=== PATIENT | male | born 1970 | race Caucasian/White ===

== ENCOUNTER → 2016-07-29 | Outpatient (REF) | payer BC, OTHER ==
[~2016-07-29] MED LIST: ALLE10TA12 PO; ATOR40TA PO; BENT10CA PO; CYCL5TA GT; DULO30CA PO; LISIPOW PO; NAPR375T4 PO; OMEP20CA3 PO; STRATTERA; TRAM50TA2 PO; TRAZ50TA4 PO; [UNRECOGNIZED DRUG - CODE] PO
[2016-07-29 16:31] LABS: FREE T4 0.93 NG/DL (0.76-1.46)
[2016-07-29 16:32] LABS: CORTISOL AM 4.8 UG/DL (4.3-22.4)
[2016-08-04 08:06] LABS: PROLACTIN MONOMERIC 6.6 ng/mL (.); PROLACTIN TOTAL 7.2 ng/mL (.)
== END ==
LOC: M LABDRAW1 15:28
PROVIDERS: ATTEND Internal Medicine Endocrinology, Diabetes & Metabolism
DX: E23.7 Disorder of pituitary gland, unspecified (principal)

== ENCOUNTER → 2016-08-19 | Outpatient (CLI) | payer BC, OTHER ==
[2016-08-19 09:08] LABS: ALBUMIN 3.9 GM/DL (3.2-5.2); ALKALINE PHOSPHATASE 63 U/L (45-117); ALT/SGPT 33 U/L (12-78); ANION GAP 9 MEQ/L (8-16); AST/SGOT 17 U/L (15-37); BILIRUBIN,TOTAL 0.8 MG/DL (0.2-1.0); BLOOD UREA NITROGEN 15 MG/DL (7-18); CALCIUM LEVEL 8.8 MG/DL (8.5-10.1); CARBON DIOXIDE LEVEL 29 MEQ/L (21-32); CHLORIDE LEVEL 103 MEQ/L (98-107); CREATININE FOR GFR 0.81 MG/DL (0.70-1.30); GLOMERULAR FILTRATION RATE > 60.0 (>60); GLUCOSE, FASTING 173 MG/DL (70-105); SODIUM LEVEL 141 MEQ/L (136-145); TOTAL PROTEIN 6.9 GM/DL (6.4-8.2)
== END ==
LOC: M LAB 08:11
PROVIDERS: ATTEND Family Medicine
DX: E11.65 Type 2 diabetes mellitus with hyperglycemia (principal)

== ENCOUNTER → 2016-09-01 | Outpatient (CLI) | payer BC, OTHER ==
--- NOTE | 2016-09-01 16:00 | REP ---
Clinical: Spondylosis. Technique: AP, lateral, bilateral oblique, flexion/extension and coned-down views. Findings: Mild/moderate multilevel degenerative changes include osteophytosis, endplate sclerosis and minimal disc space narrowing along with mild hypertrophic facet changes. No acute fracture / compression injury or subluxation. Impression: Mild to early moderate multilevel degenerative changes. Signed by Connor Guy MD 09/01/2016 03:52 P
--- NOTE | 2016-09-01 18:25 | REP ---
CERVICAL SPINE, EIGHT VIEWS: HISTORY: Spondylosis. There is no acute fracture. The C4-5 through C6-7 intervertebral discs are decreased in height consistent with disc degeneration. Osteophytes are present on C4 through C7. There is narrowing of the C6 neural foramina secondary to uncinate process hypertrophy. There are 2 mm of anterior subluxation of C4 on C5. This is unchanged with flexion and reduces to 1 mm with extension. IMPRESSION: Degenerative change as described above. Signed by Bobby Ramos MD 09/02/2016 08:33 A
== END ==
LOC: M RAD 14:50
PROVIDERS: ATTEND Neurological Surgery
DX: M47.892 Other spondylosis, cervical region (principal)

== ENCOUNTER → 2016-11-03 | Outpatient (CLI) | payer BC, OTHER ==
[2016-11-06 14:13] LABS: TESTOSTERONE %FREE+WEAKLY BOUN 45.4 % (9.0-46.0); TESTOSTERONE FREE+WEAKLY BOUND 129.8 ng/dL (40.0-250.0)
== END ==
LOC: M LAB 07:02
PROVIDERS: ATTEND Internal Medicine Endocrinology, Diabetes & Metabolism
DX: E23.7 Disorder of pituitary gland, unspecified (principal)

== ENCOUNTER → 2016-11-04 | Outpatient (CLI) | payer BC, OTHER ==
[~2016-11-04] MED LIST changes: +METHACHOLINE KIT (J7674) INH ONE
--- NOTE | 2016-11-04 15:40 | PFTRPT ---
PULMONARY FUNCTION REPORT ORDERING PROVIDER: TRISTAN Hooks DATE OF SERVICE: 11/04/16 SPIROMETRY: Excellent technical quality. The forced vital capacity is normal. The FEV1 is in proportion. The obstructive index is, therefore, normal. FLOW VOLUME LOOP: The expiratory limb of the flow volume loop is normal. LUNG VOLUMES: The total lung capacity is normal. The residual volume suggests air trapping. DIFFUSION CAPACITY: The diffusion capacity is normal. HEMOGLOBIN: No hemoglobin was ordered for correction. AIRWAY MECHANICS: Airways resistance and conductance are normal. IMPRESSION: Suspect a degree of underlying air trapping. Please correlate clinically. MTDD
--- NOTE | 2016-11-04 16:26 | PFTRPT ---
METHACHOLINE CHALLENGE REPORT: ORDERING PROVIDER: TRISTAN Hooks DATE OF SERVICE: 11/04/16 INTERPRETATION: The study was of excellent technical quality. Under protocol, methacholine was administered. At a dose of 0.025 mg (0.125 CDUs), a 21% decline in the FEV1 was noted. Flow rates returned to baseline post bronchodilator administration. IMPRESSION: Positive methacholine challenge study. MTDD
== END ==
LOC: M CARPUL 14:58
PROVIDERS: ATTEND Physician Assistant
DX: R06.02 Shortness of breath (principal)

== ENCOUNTER → 2016-11-13 | Outpatient (CLI) | payer BC, OTHER ==
[~2016-11-13] MED LIST changes: -METHACHOLINE KIT (J7674) INH ONE
[2016-11-13 08:57] LABS: ANION GAP 10 MEQ/L (8-16); BLOOD UREA NITROGEN 13 MG/DL (7-18); CALCIUM LEVEL 8.6 MG/DL (8.5-10.1); CARBON DIOXIDE LEVEL 28 MEQ/L (21-32); CHLORIDE LEVEL 100 MEQ/L (98-107); CREATININE FOR GFR 0.81 MG/DL (0.70-1.30); GLOMERULAR FILTRATION RATE > 60.0 (>60); GLUCOSE, FASTING 220 MG/DL (70-105); POTASSIUM SERUM 3.9 MEQ/L (3.5-5.1); SODIUM LEVEL 138 MEQ/L (136-145)
== END ==
LOC: M LAB 07:53
PROVIDERS: ATTEND Physician Assistant
DX: E11.65 Type 2 diabetes mellitus with hyperglycemia (principal)

== ENCOUNTER → 2017-01-16 | Outpatient (CLI) | payer BC, OTHER ==
[~2017-01-16] MED LIST changes: +ALBU17IN INH; +ATOM40CA PO; +ATOR1TAB21 PO; -ATOR40TA PO; +ATOR40TA75 PO; +BACT800T5 PO; +BREO1INH INH; -CYCL5TA GT; +CYCL5TAB GT; +DULO-34 PO; +INVO100T PO; +LISI-542 PO; +METF500T13 PO; +MONT10TA2 PO; +OMEP40CA2 PO; +TRAZ50TA11 PO; -TRAZ50TA4 PO; +TYLE650T35 PO; +VICT18IN PO
--- NOTE | 2017-01-16 15:33 | REP ---
Left hand series: Four views. History: Pain in the left hand. Findings: Four views of the left hand demonstrate normal bones, joints, and soft tissues. Impression: Negative left hand radiographs. Signed by Joshua Beverly MD 01/16/2017 04:41 P
== END ==
LOC: M RAD 14:20
PROVIDERS: ATTEND Physician Assistant Medical
DX: M25.542 Pain in joints of left hand (principal)

== ENCOUNTER → 2017-01-26 | Outpatient (REF) | payer BC, OTHER | LOC: M LAB REF 17:13 | PROVIDERS: ATTEND Physician Assistant | DX: R30.0 Dysuria (principal) ==

== ENCOUNTER → 2017-02-03 | Outpatient (REF) | payer BC, OTHER | LOC: M SMT 13:18 | PROVIDERS: ATTEND Nurse Practitioner Women's Health | DX: N48.1 Balanitis (principal) ==

== ENCOUNTER → 2017-02-10 | Outpatient (CLI) | payer BC, OTHER ==
[2017-02-10 09:02] LABS: BASO % 0.6 % (0.0-1.0); EOS # 0.2 K/mm3 (0.0-0.50); LARGE UNSTAINED CELL # 0.2 K/mm3 (0.0-0.4); LARGE UNSTAINED CELL % 2.2 % (0.0-4.0); LYMPH # 2.4 K/mm3 (1.5-4.5); LYMPH % 25.9 % (24.0-44.0); MEAN CORPUSCULAR HEMOGLOBIN 29.3 pg (27.0-33.0); MEAN CORPUSCULAR HGB CONC 34.5 g/dl (32.0-36.5); MONO # 0.5 K/mm3 (0.0-0.8); MONO % 5.3 % (0.0-5.0); NEUTROPHILS # 5.4 K/mm3 (1.8-7.7); PLATELET COUNT, AUTOMATED 263 k/mm3 (150-450); WHITE BLOOD COUNT 8.4 K/mm3 (4.0-10.0)
[2017-02-10 09:21] LABS: ALBUMIN 3.9 GM/DL (3.2-5.2); ALBUMIN/GLOBULIN RATIO 1.26 (1.00-1.93); ALKALINE PHOSPHATASE 61 U/L (45-117); ALT/SGPT 37 U/L (12-78); ANION GAP 13 MEQ/L (8-16); AST/SGOT 14 U/L (15-37); BILIRUBIN,TOTAL 1.1 MG/DL (0.2-1.0); BLOOD UREA NITROGEN 14 MG/DL (7-18); CALCIUM LEVEL 9.3 MG/DL (8.5-10.1); CARBON DIOXIDE LEVEL 24 MEQ/L (21-32); CHLORIDE LEVEL 100 MEQ/L (98-107); CHOLESTEROL LEVEL 154 MG/DL (<200); CREATININE FOR GFR 0.74 MG/DL (0.70-1.30); GLOMERULAR FILTRATION RATE > 60.0 (>60); GLUCOSE, FASTING 213 MG/DL (70-105); SODIUM LEVEL 137 MEQ/L (136-145); TRIGLYCERIDES LEVEL 189 MG/DL (<150)
== END ==
LOC: M LAB 07:27
PROVIDERS: ATTEND Family Medicine
DX: E11.65 Type 2 diabetes mellitus with hyperglycemia (principal)

== ENCOUNTER → 2017-02-23 | Outpatient (CLI) | payer BC, OTHER ==
[2017-02-23 18:19] LABS: INR 0.89
== END ==
LOC: M LAB 17:29
PROVIDERS: ATTEND Nurse Practitioner Women's Health
DX: Z01.818 Encounter for other preprocedural examination (principal); Z79.01 Long term (current) use of anticoagulants

== ENCOUNTER 2017-03-04 15:17 | Day surgery (SDC) | payer BC, OTHER ==
[~2017-03-04] VITALS: Ht 167.6 cm; Wt 103.0 kg
[~2017-03-04 15:17] MED LIST changes: -BACT800T5 PO; +LR 1,000 ML IV ONE; -TYLE650T35 PO
[2017-03-04] MEDS ORDERED: LIDOCAINE 2% INJ 100 MG/5 ML SDV (FOR ANES.) As Ordered ONE (16:36)
[2017-03-04] MEDS ORDERED: PROPOFOL 200 MG/20 ML VIAL As Ordered ONE (16:36)
[2017-03-04] MEDS ORDERED: dexameTHASONE 4 MG/ML 1ML VIAL (J1100) As Ordered ONE (16:37)
[2017-03-04] MEDS ORDERED: SUCCINYLCHOLINE 100 MG/5 ML SYRINGE (J0330) As Ordered ONE (16:37)
[2017-03-04] MEDS ORDERED: ONDANSETRON 4MG/2ML VIAL (J2405) As Ordered ONE (16:37)
[2017-03-04] MEDS ORDERED: fentaNYL 250 MCG/5 ML INJECTION (J3010) As Ordered ONE (16:37)
[2017-03-04] MEDS ORDERED: MIDAZOLAM INJ 2 MG/2 ML VIAL (J2250) As Ordered ONE (16:37)
[2017-03-04] MEDS ORDERED: VECURONIUM BROMIDE 10 MG VIAL As Ordered ONE (16:57)
[2017-03-04] MEDS ORDERED: BACITRACIN OINT 30GM As Ordered ONE (17:31)
[2017-03-04] MEDS ORDERED: LIDOCAINE 1% SDV INJ 30 ML VIAL As Ordered ONE (17:31)
[2017-03-04] MEDS ORDERED: BUPIVACAINE HCL 0.25% 30 ML VIAL As Ordered ONE (17:31)
[2017-03-04] MEDS ORDERED: METOCLOPRAMIDE INJ 10MG/2ML VIAL (J2765) As Ordered ONE (17:42)
[2017-03-04] MEDS ORDERED: BACT800T5 PO (19:02)
[2017-03-04] MEDS ORDERED: TYLE650T35 PO (19:02)
[2017-03-04] MEDS ORDERED: fentaNYL 100 MCG/2 ML INJECTION (J3010) IV PRN (19:30)
[2017-03-04] MEDS ORDERED: HYDROmorphone HCL 1 MG/ML SYRINGE (J1170) IV PRN (19:30)
[2017-03-04] MEDS ORDERED: ONDANSETRON 4MG/2ML VIAL (J2405) IV PRN (19:30)
[2017-03-04] MEDS ORDERED: PERCOCET 5MG/325MG TAB PO PRN (19:30)
[2017-03-04] MEDS ORDERED: LR 1,000 ML IV SCH (19:30)
[2017-03-04 20:40] VITALS: BP 136/77
[2017-03-04] MEDS ORDERED: BACTRIM 160MG/800MG DS TAB PO SCH (21:00)
[2017-03-04] MEDS ORDERED: ACETAMINOPHEN 650MG ER TAB (TYLENOL ARTHRITIS) PO SCH (22:00)
[2017-03-05] MEDS ORDERED: MORPHINE 2 MG/ML 1ML SYRINGE As Ordered ONE (14:31)
--- NOTE | 2017-03-06 17:33 | RO ---
DATE OF PROCEDURE: 03/04/2017 PREPROCEDURE DIAGNOSIS: Phimosis. POSTPROCEDURE DIAGNOSIS: Phimosis. FINDINGS: Phimosis, recurrent balanitis. PROCEDURE: Circumcision. SURGEON: Dr. Gregory Lawson LABORATORY CUREMAN: None. ANESTHESIA: General. COMPLICATIONS: None. ESTIMATED BLOOD LOSS: N/A. HISTORY OF PRESENT ILLNESS: This is a 46-year-old male patient with recurrent balanitis and phimosis. For this reason, he has requested a circumcision and consented for this. DESCRIPTION OF PROCEDURE: In a patient under general anesthesia in supine position after prepping and draping the area of concern, which included the entire genitalia, we did a penile block with Marcaine 0.25% and lidocaine 1%, a total of 10 mL around the base of the penis. We then performed an incision 1 cm away from the sulcus of the glans circumferentially and 4 cm towards the base of penis did another circumferential incision. We excised the foreskin between both incisions and fulgurated bleeding vessels with electro Bovie cautery. We then approximated both borders of the incision with catgut chromic #3-0 in separate stitches. We then placed bacitracin, Kerlix roll and Coban. PLAN: The patient will go home today with antibiotic and pain medication. Followup at [facility] in about 3 days. He can not have sexual intercourse for 1 month. He may shower after 3 days. There were no complications. Foreskin was sent for permanent pathology analysis.
== END 2017-03-04 21:00 | disposition home or self-care (01) ==
LOC: M SDC 15:17
PROVIDERS: ATTEND Urology
DX: N47.1 Phimosis (principal); N48.1 Balanitis; E11.65 Type 2 diabetes mellitus with hyperglycemia; I10 Essential (primary) hypertension; J45.909 Unspecified asthma, uncomplicated; K21.9 Gastro-esophageal reflux disease without esophagitis; F90.9 Attention-deficit hyperactivity disorder, unspecified type; F32.9 Major depressive disorder, single episode, unspecified; M54.5 Low back pain; G89.29 Other chronic pain; G47.33 Obstructive sleep apnea (adult) (pediatric); E78.5 Hyperlipidemia, unspecified; E78.1 Pure hyperglyceridemia; F51.05 Insomnia due to other mental disorder; K58.9 Irritable bowel syndrome, unspecified; M79.629 Pain in unspecified upper arm; Z79.899 Other long term (current) drug therapy; Z79.84 Long term (current) use of oral hypoglycemic drugs; Z79.51 Long term (current) use of inhaled steroids; Z79.82 Long term (current) use of aspirin; Z79.1 Long term (current) use of non-steroidal anti-inflammatories (NSAID); Z87.891 Personal history of nicotine dependence; Z88.8 Allergy status to other drugs, medicaments and biological substances
CPT/HCPCS: 54161; 88304; J0330; J0690; J1100; J2250; J2405; J2765; J3010

== ENCOUNTER → 2017-03-28 | Outpatient (CLI) | payer BC, OTHER ==
[~2017-03-28] MED LIST changes: +BACT800T5 PO; -LR 1,000 ML IV ONE; +TYLE650T35 PO
--- NOTE | 2017-03-28 14:00 | REP ---
Clinical: Pain. Technique: AP and lateral views of the left forearm. Findings: No acute fracture dislocation. No subcutaneous emphysema or radiodense foreign body. Joint spaces are normal. Impression: No acute fracture or dislocation. Signed by Connor Guy MD 03/28/2017 01:51 P
== END ==
LOC: M WUC 13:20
PROVIDERS: ATTEND Physician Assistant
DX: M79.632 Pain in left forearm (principal)

== ENCOUNTER → 2017-03-31 | Outpatient (CLI) | payer BC, OTHER ==
[2017-04-04 14:28] LABS: TESTOSTERONE %FREE+WEAKLY BOUN 32.4 % (9.0-46.0); TESTOSTERONE FREE+WEAKLY BOUND 95.6 ng/dL (40.0-250.0)
== END ==
LOC: M WUC 11:05
PROVIDERS: ATTEND Internal Medicine Endocrinology, Diabetes & Metabolism
DX: E23.7 Disorder of pituitary gland, unspecified (principal)

== ENCOUNTER → 2017-07-20 | Outpatient (REF) | payer BC, OTHER | LOC: M SMT 14:41 | DX: N48.9 Disorder of penis, unspecified (principal) | CPT/HCPCS: 88305 ==

== ENCOUNTER → 2017-08-13 | Outpatient (CLI) | payer BC, OTHER ==
[2017-08-13 09:25] LABS: ESTIMATED AVERAGE GLUCOSE 223 MG/DL (60-110); HEMOGLOBIN A1c 9.4 %
[2017-08-13 09:37] LABS: ANION GAP 8 MEQ/L (8-16); BLOOD UREA NITROGEN 16 MG/DL (7-18); CALCIUM LEVEL 9.1 MG/DL (8.5-10.1); CARBON DIOXIDE LEVEL 26 MEQ/L (21-32); CHLORIDE LEVEL 104 MEQ/L (98-107); GLOMERULAR FILTRATION RATE > 60.0 (>60); GLUCOSE, FASTING 246 MG/DL (70-100); POTASSIUM SERUM 4.1 MEQ/L (3.5-5.1); SODIUM LEVEL 138 MEQ/L (136-145)
== END ==
LOC: M LAB 08:19
DX: E11.65 Type 2 diabetes mellitus with hyperglycemia (principal)
CPT/HCPCS: 83036

== ENCOUNTER → 2017-12-30 | Outpatient (CLI) | payer BC, OTHER ==
[2017-12-30 09:04] LABS: ALBUMIN 3.8 GM/DL (3.2-5.2); ALBUMIN/GLOBULIN RATIO 1.12 (1.00-1.93); ALKALINE PHOSPHATASE 66 U/L (45-117); ALT/SGPT 41 U/L (12-78); ANION GAP 9 MEQ/L (8-16); AST/SGOT 19 U/L (7-37); BILIRUBIN,TOTAL 0.7 MG/DL (0.2-1.0); BLOOD UREA NITROGEN 14 MG/DL (7-18); CALCIUM LEVEL 9.3 MG/DL (8.5-10.1); CARBON DIOXIDE LEVEL 28 MEQ/L (21-32); CHLORIDE LEVEL 100 MEQ/L (98-107); CHOLESTEROL LEVEL 140 MG/DL (<200); CHOLESTEROL RISK RATIO 3.414 (<5); CREATININE FOR GFR 0.75 MG/DL (0.70-1.30); GLOMERULAR FILTRATION RATE > 60.0 (>60); GLUCOSE, FASTING 191 MG/DL (70-100); HDL CHOLESTEROL 41 MG/DL (>40); LDL CHOLESTEROL 70.2 MG/DL (<100); NON-HDL-C 99 MG/DL; POTASSIUM SERUM 4.1 MEQ/L (3.5-5.1); SODIUM LEVEL 137 MEQ/L (136-145); TOTAL PROTEIN 7.2 GM/DL (6.4-8.2); TRIGLYCERIDES LEVEL 144 MG/DL (<150)
[2017-12-30 09:15] LABS: MAU/CREAT RATIO 131.4 MCG/MG (0.0-30.0)
[2017-12-30 10:03] LABS: ESTIMATED AVERAGE GLUCOSE 192 MG/DL (60-110); HEMOGLOBIN A1c 8.3 %
== END ==
LOC: M LAB 07:07
DX: E11.65 Type 2 diabetes mellitus with hyperglycemia (principal)
CPT/HCPCS: 80053

== ENCOUNTER → 2017-12-30 | Outpatient (CLI) | payer BC, OTHER ==
[2017-12-30 09:02] LABS: BLOOD UREA NITROGEN 15 MG/DL (7-18)
[2017-12-30 09:02] LABS: CREATININE FOR GFR 0.75 MG/DL (0.70-1.30); GLOMERULAR FILTRATION RATE > 60.0 (>60)
== END ==
LOC: M LAB 07:11
DX: N18.9 Chronic kidney disease, unspecified (principal)

== ENCOUNTER → 2018-07-29 | Outpatient (CLI) | payer BC, OTHER ==
[~2018-07-29] MED LIST changes: +TRAZ-160 PO; -TRAZ50TA11 PO
[2018-07-29 08:44] LABS: BASO # 0.1 10^3/uL (0.0-0.2); BASO % 0.7 % (0.0-1.0); EOS # 0.2 10^3/uL (0.0-0.50); EOS % 2.4 % (0.0-3.0); HEMOGLOBIN 15.1 g/dl (13.5-17.5); LYMPH # 2.5 10^3/uL (1.5-4.5); LYMPH % 26.9 % (24.0-44.0); MEAN CORPUSCULAR HEMOGLOBIN 28.7 pg (27.0-33.0); MEAN CORPUSCULAR HGB CONC 34.3 g/dl (32.0-36.5); MEAN CORPUSCULAR VOLUME 83.5 fl (80.0-96.0); MONO # 0.7 10^3/uL (0.0-0.8); MONO % 7.3 % (0.0-5.0); NEUTROPHILS # 5.6 10^3/uL (1.8-7.7); NEUTROPHILS % 61.8 % (36.0-66.0); PLATELET COUNT, AUTOMATED 279 10^3/uL (150-450); RED BLOOD COUNT 5.27 10^6/uL (4.30-6.10); WHITE BLOOD COUNT 9.1 10^3/uL (4.0-10.0)
[2018-07-29 08:58] LABS: HEMOGLOBIN A1c 9.2 %
[2018-07-29 09:11] LABS: BLOOD UREA NITROGEN 15 MG/DL (7-18); CALCIUM LEVEL 9.1 MG/DL (8.5-10.1); CARBON DIOXIDE LEVEL 28 MEQ/L (21-32); CHLORIDE LEVEL 99 MEQ/L (98-107); CREATININE FOR GFR 0.79 MG/DL (0.70-1.30); GLOMERULAR FILTRATION RATE > 60.0 (>60); GLUCOSE, FASTING 212 MG/DL (70-100); POTASSIUM SERUM 4.3 MEQ/L (3.5-5.1); SODIUM LEVEL 135 MEQ/L (136-145)
== END ==
LOC: M LAB 08:08
PROVIDERS: ATTEND Family Medicine
DX: E11.65 Type 2 diabetes mellitus with hyperglycemia (principal)